=== PATIENT | male | born 1955 | race Caucasian/White ===

== ENCOUNTER → 2018-01-21 14:11 | Outpatient (CLI) | payer OTHER, SELFPAY ==
[2018-01-21 15:44] LABS: Appearance Urine UA CLEAR; Bilirubin Urine UA NEGATIVE (NEGATIVE); Color Urine UA YELLOW; Glucose Urine UA NEGATIVE (Normal); Ketones Urine UA NEGATIVE (NEGATIVE); Leukocyte Esterase Urine UA NEGATIVE (NEGATIVE); Nitrite Urine UA NEGATIVE (NEGATIVE); Occult Blood Urine UA TRACE-INTACT (Negative); Protein Urine UA NEGATIVE (Negative); Urobilinogen Urine UA 0.2 E.U./dL (0.2)
[2018-01-21 15:55] LABS: RBC Urine 0-1/HPF (0-5/HPF); WBC Urine 1-5/HPF (0-5/HPF)
[2018-01-21 15:56] LABS: Bacteria Urine None Seen; Culture Indicated Urine Cult Not Indicated
== END ==
PROVIDERS: PCP Internal Medicine; Visit Provider Student in an Organized Health Care Education/Training Program
DX: C67.9 Malignant neoplasm of bladder, unspecified (principal)
CPT/HCPCS: 81001

== ENCOUNTER → 2018-05-09 17:22 | Outpatient (CLI) | payer OTHER, SELFPAY ==
[2018-05-09 18:09] LABS: Add Manual Diff / Slide Review NO; Eosinophils Percent Auto 4.4 % (2-4); Hematocrit 40.9 % (41-53); Hemoglobin 14.2 g/dL (13.5-17.5); Lymphocytes Percent Auto 22.2 % (25-40); Mean Corpuscular HGB Conc 34.7 % (30-36); Mean Corpuscular Hemoglobin 34.8 PG (26-34); Mean Corpuscular Volume 100.5 fL (80-100); Monocytes Percent Auto 12.4 % (3-14); Neutrophils Absolute Auto 3100 /uL (3000-5900); Platelet Count 217 X10^3/uL (150-400); Red Blood Cell Count 4.07 X10^6/uL (4.5-5.9); Red Cell Distribution Width 13.3 % (11.6-14.8); White Blood Cell Count 5.1 X10^3/uL (4.5-11.0)
[2018-05-09 18:37] LABS: Alanine Aminotransferase 30 IU/L (21-72); Albumin 4.4 g/dL (3.5-5.0); Albumin Globulin Ratio 1.5 (1.0-2.8); Alkaline Phosphatase 76 U/L (38-126); Aspartate Aminotransferase 25 IU/L (17-59); BUN Creatinine Ratio 22.9 (6-22); Bilirubin Total 0.5 mg/dL (0.2-1.3); Blood Urea Nitrogen 16 mg/dL (9-20); Calcium 9.7 mg/dL (8.4-10.2); Carbon Dioxide 28 mmol/L (22-32); Chloride 104 mmol/L (98-107); Estimated Glomerular Filt Rate > 60.0 mL/min (>60); Glucose 99 mg/dL (80-110); HEMOLYSIS 23 (0-50); Potassium 4.1 mmol/L (3.4-5.1); Sodium 142 mmol/L (137-145); Total Protein 7.4 g/dL (6.3-8.2)
[2018-05-09 18:42] LABS: C-Reactive Protein Quant < 0.5 mg/dL (<1.0)
[2018-05-09 19:06] LABS: Erythrocyte Sedimentation Rate 14 MM/HR (0-15)
== END ==
PROVIDERS: Family Provider Internal Medicine; PCP Internal Medicine; Visit Provider Internal Medicine Rheumatology
DX: L40.50 Arthropathic psoriasis, unspecified (principal)
CPT/HCPCS: 36415; 80053; 85025; 85651; 86140

== ENCOUNTER → 2018-06-04 13:03 | Outpatient (CLI) | payer OTHER, SELFPAY ==
[2018-06-04 13:25] LABS: Add Manual Diff / Slide Review NO; Basophils Percent Auto 0.8 % (0-2); Eosinophils Percent Auto 3.8 % (2-4); Hematocrit 40.3 % (41-53); Hemoglobin 13.7 g/dL (13.5-17.5); Mean Corpuscular Hemoglobin 33.9 PG (26-34); Mean Corpuscular Volume 99.9 fL (80-100); Monocytes Percent Auto 10.5 % (3-14); Neutrophils Absolute Auto 3500 /uL (3000-5900); Neutrophils Percent Auto 64.9 % (50-75); Platelet Count 204 X10^3/uL (150-400); Red Blood Cell Count 4.03 X10^6/uL (4.5-5.9); Red Cell Distribution Width 13.6 % (11.6-14.8); White Blood Cell Count 5.4 X10^3/uL (4.5-11.0)
[2018-06-04 14:15] LABS: Alanine Aminotransferase 40 IU/L (21-72); Albumin 4.4 g/dL (3.5-5.0); Albumin Globulin Ratio 1.6 (1.0-2.8); Alkaline Phosphatase 73 U/L (38-126); Aspartate Aminotransferase 27 IU/L (17-59); Bilirubin Total 0.7 mg/dL (0.2-1.3); Blood Urea Nitrogen 16 mg/dL (9-20); Calcium 9.7 mg/dL (8.4-10.2); Carbon Dioxide 26 mmol/L (22-32); Chloride 103 mmol/L (98-107); Estimated Glomerular Filt Rate > 60.0 mL/min (>60); Globulin 2.7 g/dL (1.7-4.1); Glucose 93 mg/dL (80-110); HDL Cholesterol 47 mg/dL (40-60); HEMOLYSIS < 15 (0-50); Potassium 4.3 mmol/L (3.4-5.1); Sodium 142 mmol/L (137-145); Total Protein 7.1 g/dL (6.3-8.2); Triglycerides 127 mg/dL (35-150)
[2018-06-04 14:20] LABS: Thyroid Stimulating Hormone 2.07 uIU/mL (0.47-4.68)
[2018-06-04 14:28] LABS: Cholesterol 140 mg/dL (140-199); LDL Cholesterol Calculated 68 mg/dL (<100)
== END ==
PROVIDERS: PCP Internal Medicine; Visit Provider Internal Medicine
DX: E66.9 Obesity, unspecified (principal); E78.00 Pure hypercholesterolemia, unspecified
CPT/HCPCS: 36415; 80053; 80061; 84443; 85025; G0103

== ENCOUNTER → 2019-02-18 17:20 | Outpatient (CLI) | payer OTHER, SELFPAY ==
--- NOTE | 2019-02-18 | DI.RAD.S_ITS ---
PROCEDURE: XR SHOULDER LT MIN 2V INDICATIONS: LEFT SHOULDER PAIN TECHNIQUE: 3 views of the shoulder were acquired. COMPARISON: None. FINDINGS: Bones: Mild to moderate acromioclavicular joint osteoarthritis is seen. No fractures or dislocations. No suspicious bony lesions. Visualized ribs appear intact. Soft tissues: No suspicious soft tissue calcifications. IMPRESSION: Mild to moderate left acromioclavicular joint osteoarthritis. Dictated by: Vignesh Sharp M.D. on 02/19/2019 at 8:40 Approved by: Vignesh Sharp M.D. on 02/19/2019 at 8:42
== END ==
PROVIDERS: Family Provider Internal Medicine; PCP Internal Medicine; Visit Provider Internal Medicine
DX: M25.512 Pain in left shoulder (principal); M19.012 Primary osteoarthritis, left shoulder
CPT/HCPCS: 73030

== ENCOUNTER → 2019-02-25 06:35 | Outpatient (CLI) | payer OTHER, SELFPAY ==
--- NOTE | 2019-02-25 | DI.MRI.S_ITS ---
PROCEDURE: MR SHOULDER LT WO CON INDICATIONS: CHRONIC LEFT SHOULDER PAIN TECHNIQUE: Noncontrast oblique coronal T2 fast spin echo with fat saturation, oblique sagittal T1 spin echo and T2 fast spin echo with fat saturation, axial T1 spin echo and T2 fast spin echo with fat saturation through the shoulder. COMPARISON: [facility], CR, XR SHOULDER LT MIN 2V, 02/18/2019, 17:25. FINDINGS: Image quality: Excellent. Rotator cuff: There is high-grade partial-thickness tear of the supraspinatus tendon involving both articular and bursal surface. There is superimposed supraspinatus tendinitis with tendon thickening and abnormal signal. The infraspinatus and subscapularis tendons appear intact throughout. Sagittal images demonstrate no supraspinatus muscle atrophy. Bones and bursae: No bone marrow contusions or fractures. Moderate acromioclavicular and glenohumeral joint degeneration. The acromion demonstrates conventional anatomy, without an os acromiale. There is a small glenohumeral joint effusion. No pathologic subacromial-subdeltoid or subcoracoid bursal fluid is present. Capsule and soft tissues: There are degenerative tears of the anterior superior labrum and the inferior labrum. Small paralabral cysts are noted next to the inferior labrum. In the absence of intra-articular contrast, the glenohumeral ligaments appear intact. The long head of the biceps tendon demonstrates normal location and morphology. The rotator interval appears normal, without fibrosis. The coracohumeral ligament is normal in thickness. IMPRESSION: 1. High-grade partial-thickness tear of the supraspinatus tendon and supraspinatus tendinitis. 2. Moderate acromioclavicular and glenohumeral joint degeneration. 3. Degenerative tears of the anterior superior labrum and inferior labrum. 4. Small glenohumeral joint effusion. Dictated by: Manuelito Song M.D. on 02/25/2019 at 14:56 Approved by: Manuelito Song M.D. on 02/25/2019 at 18:06
== END ==
PROVIDERS: Family Provider Internal Medicine; PCP Internal Medicine; Visit Provider Internal Medicine
DX: M25.512 Pain in left shoulder (principal); M19.011 Primary osteoarthritis, right shoulder; M75.111 Incomplete rotator cuff tear or rupture of right shoulder, not specified as traumatic; M25.411 Effusion, right shoulder; S43.491A Other sprain of right shoulder joint, initial encounter; G89.29 Other chronic pain
CPT/HCPCS: 73221

== ENCOUNTER → 2019-04-08 17:15 | Outpatient (CLI) | payer OTHER, SELFPAY ==
[2019-04-10 14:40] LABS: Complement C3 121 mg/dL (82-185)
[2019-04-10 18:49] LABS: ANA Screen, IFA Negative (Negative)
[2019-04-14 07:18] LABS: Complement Total CH50 > 60 U/mL (31-60)
== END ==
PROVIDERS: Family Provider Internal Medicine; PCP Internal Medicine; Visit Provider Dermatology
DX: M32.9 Systemic lupus erythematosus, unspecified (principal)
CPT/HCPCS: 36415; 86038; 86160; 86162

== ENCOUNTER → 2019-04-30 11:29 | Outpatient (CLI) | payer OTHER, SELFPAY | PROVIDERS: PCP Internal Medicine; Visit Provider Student in an Organized Health Care Education/Training Program | DX: C67.9 Malignant neoplasm of bladder, unspecified (principal) | CPT/HCPCS: 88112 ==

== ENCOUNTER → 2019-07-09 13:16 | Outpatient (CLI) | payer OTHER, SELFPAY ==
[2019-07-09 14:05] LABS: Add Manual Diff / Slide Review NO; Basophils Absolute Auto 0 /uL (0-100); Basophils Percent Auto 0.6 % (0-2); Eosinophils Absolute Auto 100 /uL (0-450); Eosinophils Percent Auto 1.8 % (2-4); Hemoglobin 14.7 g/dL (13.5-17.5); Lymphocytes Absolute Auto 1000 /uL (1100-4500); Lymphocytes Percent Auto 16.7 % (25-40); Mean Corpuscular HGB Conc 34.2 % (30-36); Mean Corpuscular Hemoglobin 34.6 PG (26-34); Mean Corpuscular Volume 101.1 fL (80-100); Monocytes Absolute Auto 400 /uL (0-900); Monocytes Percent Auto 7.5 % (3-14); Neutrophils Absolute Auto 4300 /uL (1500-7000); Neutrophils Percent Auto 73.4 % (50-75); Platelet Count 192 X10^3/uL (150-400); Red Blood Cell Count 4.26 X10^6/uL (4.5-5.9); Red Cell Distribution Width 13.6 % (11.6-14.8); White Blood Cell Count 5.8 X10^3/uL (4.5-11.0)
[2019-07-09 14:35] LABS: Alanine Aminotransferase 33 IU/L (<50); Albumin 4.4 g/dL (3.5-5.0); Albumin Globulin Ratio 1.7 (1.0-2.8); Alkaline Phosphatase 74 U/L (38-126); Aspartate Aminotransferase 23 IU/L (17-59); BUN Creatinine Ratio 28.8 (6-22); Bilirubin Total 1.2 mg/dL (0.2-1.3); Blood Urea Nitrogen 23 mg/dL (9-20); Calcium 9.8 mg/dL (8.4-10.2); Carbon Dioxide 25 mmol/L (22-32); Chloride 102 mmol/L (98-107); Cholesterol 150 mg/dL (140-199); Estimated Glomerular Filt Rate > 60.0 mL/min (>60); Globulin 2.6 g/dL (1.7-4.1); Glucose 97 mg/dL (80-110); HDL Cholesterol 52 mg/dL (40-60); HEMOLYSIS < 15 (0-50); LDL Cholesterol Calculated 82 mg/dL (<100); Potassium 4.4 mmol/L (3.4-5.1); Sodium 137 mmol/L (137-145); Triglycerides 79 mg/dL (35-150)
== END ==
PROVIDERS: PCP Internal Medicine; Visit Provider Internal Medicine
DX: L40.52 Psoriatic arthritis mutilans (principal); E78.00 Pure hypercholesterolemia, unspecified
CPT/HCPCS: 36415; 80053; 80061; 85025

== ENCOUNTER → 2019-07-23 13:35 | Outpatient (CLI) | payer OTHER, SELFPAY ==
[2019-07-23 17:06] LABS: Folate 15.7 ng/mL (2.76-20.0); Vitamin B12 348 pg/mL (239-931)
== END ==
PROVIDERS: PCP Internal Medicine; Visit Provider Internal Medicine
DX: D75.89 Other specified diseases of blood and blood-forming organs (principal)
CPT/HCPCS: 36415; 82607; 82746

== ENCOUNTER → 2020-06-04 17:14 | Outpatient (CLI) | payer OTHER, SELFPAY ==
[2020-06-04 17:21] LABS: Bacteria Urine None Seen; RBC Urine None Seen (0-5/HPF); WBC Urine None Seen (0-5/HPF)
[2020-06-04 17:43] LABS: Appearance Urine UA CLEAR; Bilirubin Urine UA 2+ (NEGATIVE); Color Urine UA YELLOW; Glucose Urine UA NEGATIVE (Negative); Ketones Urine UA NEGATIVE (NEGATIVE); Leukocyte Esterase Urine UA NEGATIVE (NEGATIVE); Nitrite Urine UA NEGATIVE (Negative); Occult Blood Urine UA NEGATIVE (Negative); Protein Urine UA NEGATIVE (Negative); Urobilinogen Urine UA 0.2 E.U./dL (0.2)
[2020-06-04 17:56] LABS: Culture Indicated Urine Cult Not Indicated; Ictotest Urine Negative (Negative); Urine Comments Microscopic Normal
== END ==
PROVIDERS: PCP Internal Medicine; Referring Provider Student in an Organized Health Care Education/Training Program; Visit Provider Student in an Organized Health Care Education/Training Program
DX: C67.9 Malignant neoplasm of bladder, unspecified (principal)
CPT/HCPCS: 81001

== ENCOUNTER → 2020-06-14 08:22 | Outpatient (CLI) | payer OTHER, SELFPAY ==
[2020-06-14 09:05] LABS: Add Manual Diff / Slide Review NO; Basophils Absolute Auto 0 /uL (0-100); Basophils Percent Auto 0.6 % (0-2); Eosinophils Absolute Auto 200 /uL (0-450); Eosinophils Percent Auto 3.5 % (2-4); Hematocrit 41.4 % (41-53); Hemoglobin 14.3 g/dL (13.5-17.5); Lymphocytes Absolute Auto 800 /uL (1100-4500); Lymphocytes Percent Auto 14.1 % (25-40); Mean Corpuscular HGB Conc 34.6 % (30-36); Mean Corpuscular Hemoglobin 35.1 PG (26-34); Mean Corpuscular Volume 101.7 fL (80-100); Monocytes Absolute Auto 500 /uL (0-900); Monocytes Percent Auto 8.5 % (3-14); Neutrophils Absolute Auto 4000 /uL (1500-7000); Neutrophils Percent Auto 73.3 % (50-75); Platelet Count 193 X10^3/uL (150-400); Red Blood Cell Count 4.07 X10^6/uL (4.5-5.9); Red Cell Distribution Width 13.6 % (11.6-14.8); White Blood Cell Count 5.5 X10^3/uL (4.5-11.0)
[2020-06-14 09:32] LABS: Erythrocyte Sedimentation Rate 12 MM/HR (0-15)
[2020-06-14 09:37] LABS: Alanine Aminotransferase 26 IU/L (<50); Albumin 4.2 g/dL (3.5-5.0); Albumin Globulin Ratio 1.6 (1.0-2.8); Alkaline Phosphatase 93 U/L (38-126); Aspartate Aminotransferase 22 IU/L (17-59); BUN Creatinine Ratio 27.8 (6-22); Bilirubin Total 0.9 mg/dL (0.2-1.3); Blood Urea Nitrogen 25 mg/dL (9-20); Carbon Dioxide 28 mmol/L (22-32); Chloride 105 mmol/L (98-107); Estimated Glomerular Filt Rate > 60.0 mL/min (>60); Globulin 2.7 g/dL (1.7-4.1); Glucose 108 mg/dL (80-110); HEMOLYSIS < 15 (0-50); Potassium 4.3 mmol/L (3.4-5.1); Sodium 141 mmol/L (137-145); Total Protein 6.9 g/dL (6.3-8.2)
[2020-06-14 09:40] LABS: C-Reactive Protein Quant < 0.5 mg/dL (<1.0)
== END ==
PROVIDERS: PCP Internal Medicine; Referring Provider Physician Assistant Medical; Visit Provider Physician Assistant Medical
DX: L40.50 Arthropathic psoriasis, unspecified (principal)
CPT/HCPCS: 36415; 80053; 85025; 85651; 86140

== ENCOUNTER → 2020-08-17 16:29 | Outpatient (CLI) | payer OTHER, SELFPAY ==
[2020-08-17 17:13] LABS: Add Manual Diff / Slide Review NO; Basophils Absolute Auto 0 /uL (0-100); Basophils Percent Auto 0.4 % (0-2); Eosinophils Absolute Auto 100 /uL (0-450); Eosinophils Percent Auto 1.9 % (2-4); Hematocrit 40.4 % (41-53); Hemoglobin 13.8 g/dL (13.5-17.5); Lymphocytes Absolute Auto 800 /uL (1100-4500); Lymphocytes Percent Auto 11.7 % (25-40); Mean Corpuscular HGB Conc 34.1 % (30-36); Mean Corpuscular Hemoglobin 34.3 PG (26-34); Mean Corpuscular Volume 100.6 fL (80-100); Monocytes Absolute Auto 500 /uL (0-900); Monocytes Percent Auto 6.5 % (3-14); Neutrophils Absolute Auto 5700 /uL (1500-7000); Neutrophils Percent Auto 79.5 % (50-75); Platelet Count 219 X10^3/uL (150-400); Red Blood Cell Count 4.02 X10^6/uL (4.5-5.9); Red Cell Distribution Width 13.8 % (11.6-14.8); White Blood Cell Count 7.1 X10^3/uL (4.5-11.0)
[2020-08-17 17:25] LABS: Alanine Aminotransferase 26 IU/L (<50); Albumin 4.1 g/dL (3.5-5.0); Albumin Globulin Ratio 1.4 (1.0-2.8); Alkaline Phosphatase 86 U/L (38-126); Aspartate Aminotransferase 21 IU/L (17-59); BUN Creatinine Ratio 28.2 (6-22); Bilirubin Total 0.7 mg/dL (0.2-1.3); Blood Urea Nitrogen 20 mg/dL (9-20); Calcium 9.4 mg/dL (8.4-10.2); Carbon Dioxide 28 mmol/L (22-32); Chloride 103 mmol/L (98-107); Cholesterol 126 mg/dL (140-199); Estimated Glomerular Filt Rate > 60.0 mL/min (>60); Globulin 2.9 g/dL (1.7-4.1); Glucose 102 mg/dL (80-110); HDL Cholesterol 44 mg/dL (40-60); HEMOLYSIS < 15 (0-50); LDL Cholesterol Calculated 55 mg/dL (<100); Potassium 3.9 mmol/L (3.4-5.1); Sodium 137 mmol/L (137-145); Triglycerides 133 mg/dL (35-150)
[2020-08-17 17:59] LABS: Testosterone 360 ng/dL (71.8-623)
[2020-08-17 18:05] LABS: TSH w/ Reflex to FT4 1.57 uIU/mL (0.47-4.68)
== END ==
PROVIDERS: PCP Internal Medicine; Referring Provider Internal Medicine; Visit Provider Internal Medicine
DX: E78.00 Pure hypercholesterolemia, unspecified (principal); R53.82 Chronic fatigue, unspecified; N40.1 Benign prostatic hyperplasia with lower urinary tract symptoms
CPT/HCPCS: 36415; 80053; 80061; 84403; 84443; 85025

== ENCOUNTER → 2020-08-18 17:16 | Outpatient (CLI) | payer OTHER, SELFPAY ==
[2020-08-18 17:56] LABS: HEMOLYSIS 28 (0-50); Iron 105 ug/dL (49-181)
[2020-08-18 18:09] LABS: Percent Iron Saturation 35 % (20-50); Total Iron Binding Capacity 298 ug/dL (261-462); Transferrin 220 mg/dL (206-381)
[2020-08-18 18:33] LABS: Ferritin 67 ng/mL (18-464)
[2020-08-18 18:47] LABS: Vitamin B12 265 pg/mL (239-931)
== END ==
PROVIDERS: PCP Internal Medicine; Referring Provider Internal Medicine; Visit Provider Internal Medicine
DX: D64.9 Anemia, unspecified (principal)
CPT/HCPCS: 36415; 82607; 82728; 83540; 83550

== ENCOUNTER → 2020-09-20 13:06 | Outpatient (CLI) | payer OTHER, SELFPAY ==
[2020-09-20 14:56] LABS: Prostate Specific Antigen 1.21 ng/mL (0.10-4.00)
== END ==
PROVIDERS: PCP Internal Medicine; Referring Provider Student in an Organized Health Care Education/Training Program; Visit Provider Student in an Organized Health Care Education/Training Program
DX: N40.1 Benign prostatic hyperplasia with lower urinary tract symptoms (principal)
CPT/HCPCS: 36415; 84153

== ENCOUNTER → 2020-10-07 10:53 | Outpatient (CLI) | payer OTHER, SELFPAY ==
--- NOTE | 2020-10-07 | DI.CT.S_ITS ---
PROCEDURE: CT HEAD/BRAIN WO CON INDICATIONS: Dizziness and giddiness TECHNIQUE: Noncontrast 4.5 mm thick angled axial sections acquired from the foramen magnum to the vertex, with coronal and sagittal reformats. For radiation dose reduction, the following was used: automated exposure control, adjustment of mA and/or kV according to patient size. COMPARISON: None. FINDINGS: Image quality: Excellent. CSF spaces: Basal cisterns are patent. No extra-axial fluid collections. The ventricles are symmetric in size and shape. Brain: No intracranial bleeds or masses. There is mild cerebral volume loss for age, with resultant ventricular and sulcal prominence. There are mild periventricular and deep white matter chronic small vessel ischemic changes. There is intracranial internal carotid artery atherosclerosis. Skull and face: Calvarium and visualized facial bones appear intact, without suspicious lesions. Sinuses: Visualized sinuses and mastoids are clear. IMPRESSION: 1. No acute intracranial disease process. 2. No areas of infarction. 3. No abnormal intracranial mass or mass effect. Dictated by: Richa Lemus MD, PhD on 10/07/2020 at 11:14 Approved by: Richa Lemus MD, PhD on 10/07/2020 at 11:17
== END ==
PROVIDERS: PCP Internal Medicine; Referring Provider Internal Medicine; Visit Provider Physician Assistant
DX: R42 Dizziness and giddiness (principal); R41.3 Other amnesia; R41.0 Disorientation, unspecified
CPT/HCPCS: 70450

== ENCOUNTER → 2021-07-08 17:17 | Outpatient (CLI) | payer OTHER, SELFPAY ==
[2021-07-08 18:18] LABS: Add Manual Diff / Slide Review NO; Basophils Absolute Auto 0 /uL (0-100); Basophils Percent Auto 0.8 % (0-2); Eosinophils Absolute Auto 100 /uL (0-450); Eosinophils Percent Auto 2.8 % (2-4); Hematocrit 29.4 % (41-53); Lymphocytes Absolute Auto 900 /uL (1100-4500); Lymphocytes Percent Auto 17.5 % (25-40); Mean Corpuscular HGB Conc 34.1 % (30-36); Mean Corpuscular Hemoglobin 34.7 PG (26-34); Mean Corpuscular Volume 101.8 fL (80-100); Monocytes Absolute Auto 500 /uL (0-900); Monocytes Percent Auto 10.3 % (3-14); Neutrophils Absolute Auto 3600 /uL (1500-7000); Neutrophils Percent Auto 68.6 % (50-75); Platelet Count 239 X10^3/uL (150-400); Red Blood Cell Count 2.89 X10^6/uL (4.5-5.9); White Blood Cell Count 5.2 X10^3/uL (4.5-11.0)
[2021-07-08 18:20] LABS: HEMOLYSIS < 15 (0-50); Iron 50 ug/dL (49-181)
[2021-07-08 18:31] LABS: Percent Iron Saturation 17 % (20-50); Total Iron Binding Capacity 292 ug/dL (261-462); Transferrin 207 mg/dL (206-381)
[2021-07-08 18:57] LABS: Ferritin 20 ng/mL (18-464)
[2021-07-08 19:28] LABS: Folate 18.2 ng/mL (2.76-20.0); Vitamin B12 298 pg/mL (239-931)
== END ==
PROVIDERS: PCP Family Medicine; Referring Provider Internal Medicine Gastroenterology; Visit Provider Internal Medicine Gastroenterology
DX: D64.9 Anemia, unspecified (principal); R10.84 Generalized abdominal pain; K92.1 Melena; R63.4 Abnormal weight loss; Z12.11 Encounter for screening for malignant neoplasm of colon
CPT/HCPCS: 36415; 82607; 82728; 82746; 83540; 83550; 85025

== ENCOUNTER → 2021-07-11 14:00 | Outpatient (CLI) | payer OTHER, SELFPAY ==
[2021-07-11 16:48] LABS: COVID19 - ADMIT (NP swab/PCR) Negative (Negative)
== END ==
PROVIDERS: PCP Family Medicine; Visit Provider Physician Assistant
DX: Z20.822 Contact with and (suspected) exposure to COVID-19 (principal)
CPT/HCPCS: U0003

== ENCOUNTER → 2021-08-09 17:11 | Outpatient (CLI) | payer OTHER, SELFPAY ==
[2021-08-09 17:58] LABS: Appearance Urine UA CLEAR; Bilirubin Urine UA NEGATIVE (NEGATIVE); Color Urine UA YELLOW; Glucose Urine UA NEGATIVE (Negative); Ketones Urine UA TRACE (NEGATIVE); Leukocyte Esterase Urine UA NEGATIVE (NEGATIVE); Nitrite Urine UA NEGATIVE (Negative); Occult Blood Urine UA TRACE-LYSED (Negative); Protein Urine UA TRACE (Negative); Specific Gravity Urine UA >=1.030 (1.000-1.035); Urobilinogen Urine UA 0.2 E.U./dL (0.2)
[2021-08-09 18:26] LABS: RBC Urine None Seen (0-5/HPF); Squamous Epithelial Cell Urine 5-10 /HPF (0-5/HPF); WBC Urine None Seen (0-5/HPF)
[2021-08-09 18:27] LABS: Amorphous Sediment Urine 1+; Bacteria Urine None Seen; Culture Indicated Urine Cult Not Indicated
== END ==
PROVIDERS: PCP Family Medicine; Referring Provider Urology; Visit Provider Urology
DX: R31.0 Gross hematuria (principal); N40.1 Benign prostatic hyperplasia with lower urinary tract symptoms
CPT/HCPCS: 36415; 81001

== ENCOUNTER → 2021-10-17 16:00 | Outpatient (CLI) | payer MEDICARE, BC, SELFPAY ==
[2021-10-17 16:49] LABS: COVID19 -Nasal RAPID Negative (Negative)
== END ==
PROVIDERS: PCP Family Medicine; Visit Provider Surgery
DX: Z01.812 Encounter for preprocedural laboratory examination (principal); Z20.822 Contact with and (suspected) exposure to COVID-19; K62.89 Other specified diseases of anus and rectum
CPT/HCPCS: 87635; 99214

== ENCOUNTER 2021-10-18 08:32 | Day surgery (SDC) | payer MEDICARE, OTHER, SELFPAY ==
[2021-10-18] VITALS (7 sets, daily range): BP systolic 121–154; BP diastolic 67–88; PULSE 58–75; RESP 13–20; TEMP 36.7–36.8; O2SAT 93–99; BMI 25.4
[2021-10-18] MEDS: LACTATED RINGERS 1,000 ML 125 ML IV (09:20)
--- NOTE | 2021-10-18 09:35 | PM.PREOP ---
Pre-operative Note COVID-19 Criteria for continued procedure: Expected advancement of disease process Interval Note History & Physical reviewed/Exam performed by Physician: Yes Changes to H&P: No
[2021-10-18] MEDS: fentaNYL 250 MCG/5 ML INJ IV (09:37)
[2021-10-18] MEDS: MIDAZOLAM 5 MG/5 ML VIAL IV (09:39)
--- NOTE | 2021-10-18 10:07 | P.OP.COLON_ITS ---
Operative Date/Time/Diagnoses Date of procedure: 10/18/21 Time of procedure: 10:07 Pre-op diagnosis: Rectal mass Post-op diagnosis: other (Internal hemorrhoids) Procedure & Clinicians Study performed: Flexible sigmoidoscopy Same procedure as scheduled: Yes Indications: 66-year-old male with a rectal mass GI bleed and weight loss here for sig moidoscopy Surgeon: Nate Sparks Procedure Notes Procedure in detail: Patient was brought to the procedure room placed in left lateral decubitus position. Procedural sedation was administered with Versed and fentanyl. The pediatric scope was inserted into anus and advanced forward. There was a 2 cm friable structure within the anal canal which was consistent in appearance with a large ulcerated internal hemorrhoid. The scope was advanced forward and ultimately we were able to reach the ascending colon the cecum could not intubated secondary to the degree of stool burden he had not had a bowel prep prior to the procedure as he was unable to tolerated. Scope was carefully withdrawn the quality of the prep was quite limiting however there were no large masses and there was diverticular disease noted. Sedation minutes: 25 Specimen(s): none sent Complications: none Impression: Internal hemorrhoid Post-procedure Plan for aftercare: Will plan for excisional hemorrhoidectomy later today Disposition: same day surgery
--- NOTE | 2021-10-18 14:00 | SUR.PHASEII ---
Late entry: Pt kept in Phase 2 awaiting hemorrhoidectomy. updated multiple times. Dr. Sparks to pt's bedside multiple times as well. Pt up to [facility] having loose stools, states pain in rectum tolerable.
== END 2021-10-18 13:59 | disposition home or self-care (01) ==
LOC: OR 08:34
PROVIDERS: PCP Family Medicine; Referring Provider Surgery; Visit Provider Surgery
PROC: 0DJD8ZZ Inspection of Lower Intestinal Tract, Via Natural or Artificial Opening Endoscopic (ICD-10-PCS; CPT 45378; principal; 2021-10-18 10:00)
DX: K64.8 Other hemorrhoids (principal); R63.4 Abnormal weight loss
CPT/HCPCS: 45330; 99152; 99153; J1100; J2250; J2405; J2704; J3010

== ENCOUNTER 2021-10-18 14:06 | Day surgery (SDC) | payer MEDICARE, OTHER, SELFPAY ==
[2021-10-18] VITALS (8 sets, daily range): BP systolic 118–146; BP diastolic 65–95; PULSE 54–557; RESP 16–18; TEMP 36.6–37.3; O2SAT 95–97; BMI 25.4
--- NOTE | 2021-10-18 | PATH_ITS ---
[facility] Accession Number: [id number] . 01 Material submitted: . rectum - RECTAL MASS . 02 Diagnosis: A. Rectal Mass, Excision: Consistent with hemorrhoidal tissue with erosion and extensive reactive changes. No evidence of dysplasia or malignancy. [facility] 10/24/2021 1642 Local . 02 Electronically signed: . Michelle Newton MD, Pathologist NPI- [id number] . 01 Gross description: . RECTAL MASS: Received in formalin is 1 fragment of brooks soft tissue measuring 1.1 x 0.9 x 0.9 cm. Specimen is sectioned and submitted in its entirety in 1 cassette. /YOVANY 10/19/20212010 Local . 02 Microscopic: . P16 immunostain is performed on block A1 in order to assess an area of cauterized tissue for moderate dysplasia with appropriately staining external controls. The area of interest demonstrates no overexpression of p16, in support of the diagnosis. . * This test was developed and its performance characteristics determined by [facility]. It has not been cleared or approved by the U.S. Food and Drug Administration. The FDA has determined that such clearance or approval is not necessary. This test is used for clinical purposes. It should not be regarded as investigational or for research. . 02 Pathologist provided ICD-10: K64.9 . 02 CPT . 853055, F28804 Specimen Comment: A courtesy copy of this report has been sent to [phone] Performed at: 01 [facility] [address] [facility], [place], [place] [id number] MD Lv Boggs MD Phone: [phone] Performed at: [address] [facility] [address] [place], [place] [id number] MD Aleisha Santos MD Phone: [phone]
[2021-10-18] MEDS: LACTATED RINGERS 1,000 ML 42 ML IV (13:34)
--- NOTE | 2021-10-18 14:10 | SUR.OPER ---
Lithotomy on padded OR bed, head on pillow, arms secured on padded arm boards at <90 degrees abduction. Legs secured in padded yellow fins stirrups.
--- NOTE | 2021-10-18 14:18 | PM.HP.1 ---
History of Present Illness History of Present Illness Date Patient Seen: 10/18/21 Time Patient Seen: 14:18 Chief complaint: HEMORRHOIDECTOMY Narrative: 66-year-old man had a flexible sigmoidoscopy today for a rectal mass and associated bleeding. Sigmoidoscopy demonstrated very friable large hemorrhoid and not a arjun mass. He is here for excisional hemorrhoidectomy. Patient History Medical History (Updated 10/18/21 @ 14:20 by Nate Sparks MD) Bladder cancer Excessive daytime sleepiness (~2013) Obstructive sleep apnea syndrome (~2013) Primary insomnia (~2013) Psoriatic arthritis Snoring (~2013) Family & Social History Social History: household members spouse lives independently Yes caregiver/support person No Tobacco & Substance use: Smoking Status Never smoker alcohol intake frequency a few times a month Substance Use Type does not use Meds Home Medications and Allergies Home Medications Medication Instructions Recorded Confirmed Type Resmed Airsense 10 CPAP #1 ea 01/16/19 10/17/21 History atorvastatin 10 mg tablet 10 mg PO BEDTIME 10/18/21 10/18/21 History docusate sodium 100 mg capsule 100 mg PO BID 10/18/21 10/18/21 History (Stool Softener) oxybutynin chloride 5 mg tablet 5 mg PO BID 10/18/21 10/18/21 History tamsulosin 0.4 mg capsule (Flomax) 0.4 mg PO BID 10/18/21 History Allergies Allergy/AdvReac Type Severity Reaction Status Date / Time No Known Allergies Allergy Uncoded 10/17/21 15:32 Exam Vital Signs (past 8 hours): - 10/18/21 14:09 Temperature 99.2 F Pulse Rate 63 Respiratory Rate 16 Blood Pressure 146/82 H Pulse Oximetry 97 Oxygen Delivery Method Room Air Narrative Exam Narrative: GENERAL: Obese male in no apparent distress HEENT: No scleral icterus CV: Regular rate, no peripheral edema LUNGS: No increased work of breathing. Patient speaks in full sentences without oxygen support. ABDOMEN: Soft, non-tender, non-distended NEURO: Nonfocal, normal strength throughout, SKIN: Warm and dry Assessment & Plan Assessment and plan (1) Hemorrhoid: Status: Acute Assessment & Plan narrative: 66 old man ulcerated large internal hemorrhoid here for excisional hemorrhoidectomy. Technical details of the procedure were discussed with the patient. Operative risks including bleeding, infection, incontinence and anal stenosis were discussed. His questions have been answered and he is in agreement with this plan. Time Spent With Patient Critical Care time: I spent a total of [] minutes of critical care time on this patient's care today; this time is exclusive of procedural time.
[2021-10-18] MEDS: BUPIVACAINE 0.25% (PF) VIAL 30 ML INJ (14:43)
[2021-10-18] MEDS: BUPIVACAINE LIPOSOME 266 MG/20 ML VIAL INJ (14:43)
[2021-10-18] MEDS: METHYLENE BLUE 50 MG/10 ML VIAL INJ (14:44)
[2021-10-18] MEDS: DIBUCAINE 1% OINT 28 GM 1 APPLIC TOP (14:46)
--- NOTE | 2021-10-18 15:10 | PM.OP.1 ---
Operative Date/Time/Diagnoses Date of procedure: 10/18/21 Time of procedure: 15:10 Pre-op diagnosis: rectal mass Post-op diagnosis: same Procedure & Clinicians Procedure: excisional biopsy of rectal mass Same procedure as scheduled: Yes Indications: 66 y.o man with weight loss, rectal pain and a low lying rectal mass observed on sigmoidoscopy today. Surgeon: Nate Sparks Click Yes if Unassisted: Yes Anesthesia Type: General Operative Notes Findings: 1.5 cm friable mass in the anal canal. Posterior midline. 2 cm from the anal verge. Specimen(s): other (rectal mass) Estimated Blood Loss (mL): 10 Procedure in detail: Patient was brought to the operating room placed supine. General anesthesia was induced he was intubated with LMA. Placed in lithotomy. Prepped draped sterile fashion. Time-out performed. Inspection of the rectum demonstrated a 1.5 cm friable mass within the anal canal in the posterior midline. On close inspection it does not appear to be a hemorrhoid. It was excised using electrocautery of the mucosa. 3 ml of methylene blue was injected into the mucosa just proximal to the mass. Hemostasis was achieved. Complications: none Post-operative Condition: stable Disposition: same day surgery
[2021-10-18] MEDS: OXYCODONE IR 5 MG TABLET PO (15:28)
== END 2021-10-18 16:07 | disposition home or self-care (01) ==
PROVIDERS: PCP Family Medicine; Referring Provider Surgery; Visit Provider Surgery
PROC: (CPT 45384; principal; 2021-10-18 14:45)
DX: K64.8 Other hemorrhoids (principal); R63.4 Abnormal weight loss; G47.33 Obstructive sleep apnea (adult) (pediatric)
CPT/HCPCS: 45384; 45381; C9290; J1100; J2250; J2405; J2704; J3010; Q9968

== ENCOUNTER 2022-01-31 06:42 | Day surgery (SDC) | payer MEDICARE, OTHER, SELFPAY ==
[2022-01-31 07:10] VITALS: BP 119/74; PULSE 64; RESP 16; TEMP 37; O2SAT 97
[2022-01-31 07:31] LABS: COVID19 -Nasal RAPID POSITIVE (Negative)
--- NOTE | 2022-01-31 07:45 | SUR.PREOP ---
Patient tested positive for COVID, case canceled. Endoscopy notified. Advised patient to take precautions and to follow-up with provider.
== END 2022-01-31 06:45 | disposition home or self-care (01) ==
PROVIDERS: PCP Family Medicine; Referring Provider Surgery; Visit Provider Surgery
DX: K62.89 Other specified diseases of anus and rectum (principal); K92.2 Gastrointestinal hemorrhage, unspecified; Z53.09 Procedure and treatment not carried out because of other contraindication; U07.1 COVID-19
CPT/HCPCS: 45378; 87635; C9803

== ENCOUNTER → 2022-02-06 09:39 | Outpatient (ROUT) | payer MEDICARE, OTHER, SELFPAY ==
[2022-02-06 18:07] LABS: COVID-19 CEPHEID PCR (VTM/NP) Negative (Negative)
== END ==
PROVIDERS: PCP Family Medicine; Visit Provider Family Medicine
DX: Z20.822 Contact with and (suspected) exposure to COVID-19 (principal)
CPT/HCPCS: U0003; U0005

== ENCOUNTER → 2022-02-21 13:18 | Outpatient (CLI) | payer MEDICARE, OTHER, SELFPAY ==
[2022-02-21 15:07] LABS: Appearance Urine UA CLEAR; Bilirubin Urine UA NEGATIVE (NEGATIVE); Color Urine UA YELLOW; Glucose Urine UA NEGATIVE (Negative); Ketones Urine UA NEGATIVE (NEGATIVE); Leukocyte Esterase Urine UA 1+ (NEGATIVE); Nitrite Urine UA NEGATIVE (Negative); Occult Blood Urine UA 3+ (Negative); Protein Urine UA NEGATIVE (Negative); Specific Gravity Urine UA 1.015 (1.000-1.035); Urobilinogen Urine UA 0.2 E.U./dL (0.2); pH Urine UA 5.5 (4.5-8.0)
[2022-02-21 15:13] LABS: Bacteria Urine None Seen; Culture Indicated Urine Specimen Cultured; RBC Urine 1-5/HPF (0-5/HPF); WBC Urine 1-5/HPF (0-5/HPF)
== END ==
PROVIDERS: PCP Family Medicine; Referring Provider Urology; Visit Provider Urology
DX: R30.0 Dysuria (principal)
CPT/HCPCS: 81001; 87086

== ENCOUNTER → 2022-05-15 17:13 | Outpatient (CLI) | payer MEDICARE, OTHER, SELFPAY ==
[2022-05-15 18:10] LABS: Appearance Urine UA CLOUDY; Bilirubin Urine UA NEGATIVE (NEGATIVE); Color Urine UA YELLOW; Glucose Urine UA TRACE g/dL (Negative); Ketones Urine UA TRACE (NEGATIVE); Leukocyte Esterase Urine UA 2+ (NEGATIVE); Nitrite Urine UA NEGATIVE (Negative); Occult Blood Urine UA 3+ (Negative); Protein Urine UA 3+ (Negative); Specific Gravity Urine UA 1.025 (1.000-1.035); Urobilinogen Urine UA 0.2 E.U./dL (0.2)
[2022-05-15 18:16] LABS: Bacteria Urine Moderate (10-30); Culture Indicated Urine Specimen Cultured; Mucus Urine 1+ (Negative); RBC Urine 10-30/HPF (0-5/HPF); Squamous Epithelial Cell Urine 0-1 /HPF (0-5/HPF); WBC Urine >100/HPF (0-5/HPF)
== END ==
PROVIDERS: PCP Family Medicine; Referring Provider Urology; Visit Provider Urology
DX: R30.0 Dysuria (principal)
CPT/HCPCS: 81001; 87086

== ENCOUNTER 2022-11-07 09:52 | Day surgery (SDC) | payer MEDICARE, OTHER, SELFPAY ==
[2022-11-07 10:28] VITALS: BMI 26.0
[2022-11-07 10:39] VITALS: BP 151/86; PULSE 77; RESP 16; TEMP 36.6; O2SAT 97
[2022-11-07] MEDS: LACTATED RINGERS 1,000 ML 200 ML IV (10:41)
--- NOTE | 2022-11-07 11:18 | PM.PREOP ---
Pre-operative Note Interval Note History & Physical reviewed/Exam performed by Physician: Yes Changes to H&P: No
[2022-11-07 11:42] VITALS: BP 110/66; PULSE 59; RESP 12; TEMP 36.6; O2SAT 96
--- NOTE | 2022-11-07 11:44 | PM.OP.COLON ---
Operative Date/Time/Diagnoses Date of procedure: 11/07/22 Time of procedure: 11:44 Pre-op diagnosis: Abdominal pain Post-op diagnosis: same Procedure & Clinicians Study performed: Colonoscopy Same procedure as scheduled: Yes Indications: 67-year-old man with right-sided abdominal pain here for colonoscopy Surgeon: Nate Sparks Procedure Notes Procedure in detail: The history and physical was performed/updated and the patient is ASA class is 2. The procedure was discussed in detail with the patient. Potential risks complications including infection, bleeding, missed diagnosis, perforation, need for surgery, and were explained. Their questions were answered and informed consent was obtained. Patient was brought to the procedure room and placed standard monitoring equipment. The patient's vital signs were monitored continuously throughout the entire procedure. Prior to starting time-out was performed. The patient was placed in the left lateral recumbent position. Procedural sedation was administered by anesthesia. Examination began with a thorough inspection of the perianal area there was no evidence of fissures, fistulae, external hemorrhoids or cutaneous malignancy. The colonoscopy scope was then placed into the anal canal and was advanced to the cecum, which was identified by the ileocecal valve, the appendiceal orifice and the confluence of the taenia. The scope was then slowly withdrawn examining colon thoroughly in all directions, irrigating it of any residual stool. There were no masses polyps or inflammation within the colon. Colon was notable for diverticulosis throughout the entirety of the colon The patient tolerated the procedure well. They will be discharged once criteria are met. The prep was of good/excellent quality. The withdrawl time was 7 minutes. Specimen(s): none sent Impression: Diverticulosis Post-procedure Recommendations: Colonoscopy in 10 years and High fiber diet Disposition: same day surgery
[2022-11-07 11:47] VITALS: BP 113/70; PULSE 59; RESP 13; O2SAT 94
[2022-11-07 11:52] VITALS: BP 112/72; PULSE 66; RESP 14; O2SAT 97
[2022-11-07 11:56] VITALS: BP 122/79; PULSE 65; RESP 14; O2SAT 98
== END 2022-11-07 12:18 | disposition home or self-care (01) ==
PROVIDERS: PCP Family Medicine; Referring Provider Surgery; Visit Provider Surgery
PROC: 0DJD8ZZ Inspection of Lower Intestinal Tract, Via Natural or Artificial Opening Endoscopic (ICD-10-PCS; CPT 45378; principal; 2022-11-07 11:00)
DX: R10.9 Unspecified abdominal pain (principal); K57.30 Diverticulosis of large intestine without perforation or abscess without bleeding
CPT/HCPCS: 45378; J2704; J3010

== ENCOUNTER → 2023-01-03 15:20 | Outpatient (CLI) | payer MEDICARE, OTHER, SELFPAY ==
[2023-01-03 18:02] LABS: Appearance Urine UA CLOUDY; Bilirubin Urine UA NEGATIVE (NEGATIVE); Color Urine UA YELLOW; Glucose Urine UA NEGATIVE (Negative); Ketones Urine UA NEGATIVE (NEGATIVE); Leukocyte Esterase Urine UA 3+ (NEGATIVE); Nitrite Urine UA NEGATIVE (Negative); Occult Blood Urine UA 1+ (Negative); Protein Urine UA TRACE (Negative); Urobilinogen Urine UA 0.2 E.U./dL (0.2)
[2023-01-03 18:19] LABS: Bacteria Urine Many (>30); Culture Indicated Urine Specimen Cultured; RBC Urine 5-10/HPF (0-5/HPF); Squamous Epithelial Cell Urine 1-5 /HPF (0-5/HPF); WBC Urine >100/HPF (0-5/HPF)
== END ==
PROVIDERS: PCP Family Medicine; Referring Provider Urology; Visit Provider Urology
DX: R30.0 Dysuria (principal)
CPT/HCPCS: 81001; 87077; 87086; 87147; 87186

== ENCOUNTER → 2023-01-08 09:56 | Outpatient (CLI) | payer MEDICARE, OTHER, SELFPAY ==
--- NOTE | 2023-01-08 | DI.CT.S_ITS ---
PROCEDURE: CT CHEST WO CON INDICATIONS: PULMONARY NODULES TECHNIQUE: Noncontrast 2.0-2.5 mm thick sections acquired from the pulmonary apices to the posterior costophrenic angles. 7 mm thick axial MIP and 5 mm coronal and sagittal reformats were then acquired. A low radiation dose technique was utilized. COMPARISON: None. FINDINGS: Image quality: Diagnostic, given the low radiation dose technique. Lungs and pleura: Stable small pulmonary nodules in the periphery of the right upper lobe, largest measuring 4 mm (series 3, image 134). Stable 6 mm solid nodule in the right lung base (series 3, image 271). Mediastinum: Heart size is normal. No pericardial effusion. No mediastinal adenopathy by size criteria. Thoracic aorta and central pulmonary arteries are normal in size. Esophagus is normal in caliber. No hiatal hernia. Marked coronary artery calcifications for age. Bones and chest wall: No suspicious bony lesions. No vertebral body compression fractures. No axillary or supraclavicular adenopathy by size criteria. Thyroid gland is unremarkable . Abdomen: Visualized upper abdomen solid organs and bowel loops appear normal in the absence of contrast. IMPRESSION: Stable pulmonary nodules compared with 07/20/2022. Largest measures 6 mm in the left lower lobe. If at high risk for developing lung cancer, recommend follow-up in 18-24 months as of 07/20/2022. This is optional if the patient is at low risk for developing lung cancer. Marked coronary artery calcifications for age. Consider cardiology referral. Fleischner Society criteria for SOLID lung nodule followup. Nodule size (mm)Low-risk patientHigh-risk patient<6 (single or multiple)No routine followup.Optional CT at 12 months. 6-8 (single or multiple)CT at 6-12 months, then optional CT at 18-24 mo.CT at 6-12 months, then CT at 18-24 months. >8 (single)CT at 3 months, PET-CT, or biopsy. Same as for low-risk pts. >8 (multiple)CT at 3-6 months, then optional CT at 18-24 mo.CT at 3-6 months, then CT at 18-24 months. Fleischner Society criteria for SUB-SOLID lung nodule followup. Solitary pure ground-glass nodules<6 mm (ground glass or part solid)No followup needed. 6 mm or larger (ground glass)CT at 6-12 months to confirm persistence, then CT every 2 years until 5 years.6 mm or larger (part solid)CT at 3-6 months to confirm persistence, then annual CT until 5 years if unchanged and solid component remains <6 mm. Multiple sub-solid nodules<6 mmCT at 3-6 months, then CT consider at 2 & 4 years for high risk patients. [address] at 3-6 months. Subsequent management based on most suspicious lesions. Recommendations do not apply to lung cancer screening, patients with immunosuppression, or patients with known primary cancer. Dictated by: Froilan Carpio M.D. on 01/08/2023 at 16:01 Approved by: Froilan Carpio M.D. on 01/08/2023 at 16:09
== END ==
PROVIDERS: PCP Family Medicine; Referring Provider Urology; Visit Provider Urology
DX: C67.9 Malignant neoplasm of bladder, unspecified (principal); R91.8 Other nonspecific abnormal finding of lung field; I25.10 Atherosclerotic heart disease of native coronary artery without angina pectoris
CPT/HCPCS: 71250

== ENCOUNTER → 2023-03-22 07:51 | Outpatient (CLI) | payer MEDICARE, OTHER, SELFPAY ==
--- NOTE | 2023-03-22 07:52 | DI.ECHO.S_ITS ---
[facility] +---------+ : : [address] : [place] : : : : [id number] : : : : Phone: [phone]+ Echocardiogram Report + + :Name: DEBORAH SINGH JR Study Date: 03/22/2023 Height: 71 in : :[facility] ReadingLocation: Weight: 205 lb : : Gender: Male BSA: 2.1 m2 : :: 1955 Age: 67 yrs BP: 148/89 mmHg: :Reason For Study: Atherosclerotic Heart Disease : :Ordering Physician: LEXY, : :FRANCISCO Performed By: Sravani Velez : :Referring: FRANCISCO PUGH : + + Interpretation Summary The ejection fraction is estimated to be 60-65%. Diastolic parameters suggest probable normal left ventricular diastolic function and normal filling pressures. The right ventricular systolic function is normal. Pulmonary artery pressures cannot be estimated because of the lack of a measurable TR jet velocity. No significant valvular abnormality. There is a trivial pericardial effusion noted. Procedure: A two-dimensional transthoracic echocardiogram with color flow and Doppler was performed. The study quality was technically adequate. There is no prior echocardiogram noted for this patient. The patient was in normal sinus rhythm during the exam. Left Ventricle: The left ventricle is normal in size. The ejection fraction is estimated to be 60-65%. There are no obvious focal wall motion abnormalities noted but poor endocardial definition reduces the sensitivity for the detection of such. Diastolic parameters suggest probable normal left ventricular diastolic function and normal filling pressures. Right Ventricle: The right ventricular cavity is small. The right ventricular systolic function is normal. Atria: The left atrium is borderline dilated. Right atrial size is normal. There is no Doppler evidence for an interatrial shunt. Mitral Valve: The mitral valve leaflets appear mildly thickened, but open well. There is no mitral valve stenosis. There is trace mitral regurgitation. Aortic Valve: The aortic valve is trileaflet. The aortic valve opens well. There is no aortic valve stenosis. No aortic regurgitation is present. Tricuspid Valve: The tricuspid valve is normal. There is no tricuspid stenosis. There is trace tricuspid regurgitation. Pulmonary artery pressures cannot be estimated because of the lack of a measurable TR jet velocity. Pulmonic Valve: The pulmonic valve leaflets are thin and pliable; valve motion is normal. There is no pulmonic valvular stenosis. There is trace pulmonic regurgitation. Great Vessels: The aortic root is normal size. The ascending aorta is normal in size. The pulmonary artery is normal size. The IVC is of normal diameter and collapses greater than 50% with a sniff. This suggests a low right atrial pressure of 3 mm Hg. Pericardium/ Pleura There is a trivial pericardial effusion noted. There are small-sized bilateral pleural effusions noted. MMode/2D Measurements & Calculations LVIDd: 5.0 cm LVOT diam: 2.2 cm LVIDs: 4.2 cm Ao root diam: 3.5 cm FS: 16.0 % asc Aorta Diam: 3.4 cm EPSS: 1.4 cm IVSd: 1.4 cm LVPWd: 1.5 cm LV balbuena. diameter/BSA (cm/m^2): 2.3 LV sys. diameter/BSA (cm/m^2): 2.0 LA A2 area: 20.9 cm2 RA long axis: 5.3 cm LA A4 area: 18.4 cm2 RA area: 12.4 cm2 LA length (vol): 5.3 cm RA vol: 24.5 ml LA vol: 62.1 ml RA : 11.5 ml/m2 LA vol index: 29.1 ml/m2 RVD1 (basal): 3.0 cm LVLs ap4: 6.4 cm LVLd ap2: 7.0 cm TAPSE_phl: 2.1 cm LVLs ap2: 6.2 cm Doppler Measurements & Calculations Ao V2 max: 115.0 cm/sec LVOT Max Mayito: 86.7 cm/sec Ao V2 mean: 80.1 cm/sec LV V1 max P.0 mmHg Ao max P.0 mmHg LV V1 VTI: 20.9 cm Ao mean P.0 mmHg ONI(I,D): 2.9 cm2 Ao V2 VTI: 27.7 cm ONI(V,D): 2.9 cm2 sev ratio: 0.75 ONI indexed to BSA (cm^2/m^2): 1.3 MV E max mayito: 78.8 cm/sec PA V2 max: 108.0 cm/sec MV A max mayito: 83.3 cm/sec PA V2 mean: 73.1 cm/sec MV E/A: 0.95 PA mean P.0 mmHg Med Peak E' Mayito: 7.7 cm/sec PA pr(Accel): 11.0 mmHg E/E' med: 10.2 Lat Peak E' Mayito: 11.6 cm/sec E/E' lat: 6.8 E/e' average: 8.5 MV dec time: 0.19 sec SV(LVOT): 79.4 ml AV VR_phl: 0.75 ONI(VTI)/BSA_phl: 1.4 MV P1/2t-pr_phl: 56.0 msec Reading Physician:PM
== END ==
PROVIDERS: PCP Family Medicine; Referring Provider Internal Medicine; Visit Provider Internal Medicine
DX: J90 Pleural effusion, not elsewhere classified (principal); I25.10 Atherosclerotic heart disease of native coronary artery without angina pectoris; I25.84 Coronary atherosclerosis due to calcified coronary lesion
CPT/HCPCS: 93306

== ENCOUNTER 2023-10-03 09:52 | Emergency (ER) | payer MEDICARE, OTHER, SELFPAY ==
[2023-10-03] VITALS (10 sets, daily range): BP systolic 129–190; BP diastolic 75–87; PULSE 55–69; RESP 20; TEMP 36.6; O2SAT 94–98; BMI 28.4
--- NOTE | 2023-10-03 10:09 | PC.NURSE ---
Pt had recent TURBT surgery x1 week ago. Catheter d\c'd on sunday and pt reports he is having thick dark reddish-black urine. Pt denies any pain. Pt was advised by pcp to come to ED for further workup and evaluation. Pt a&ox4.
--- NOTE | 2023-10-03 10:16 | ED.MALEGU ---
HPI - Male Genitourinary General Chief complaint: Urogenital-Male Stated complaint: sent by pcp surgery t-7 urinary bledding not stop Time Seen by Provider: 10/03/23 10:15 Source: patient Mode of arrival: Ambulatory Limitations: no limitations History of Present Illness HPI Narrative: 68-year-old male with history of prostate cancer he had his 5th prostate surgery last week states he had his catheter out on Sunday had a little bit of blood but states it has been increasing over time and becoming more thick, sludge and dark. States he is having some dysuria and frequency requires a little bit more Valsalva to urinate. He states he feel like he can mostly empty his bladder although sometimes feels like there is a little bit left over. He states this feeling is not atypical postsurgically for him they increasing bleeding is. Patient does have a little bit of suprapubic pain. He states he has been taking ibuprofen and Tylenol which seems to be adequate. He denies fevers or chills. No nausea or vomiting. He felt ?achy? yesterday but that resolved. Denies any back or flank pain. States he has been stooling with soft regular stools and taking a laxative. No black or bloody stools. Patient is not on any anticoagulants. He has had 5 prior TURP for small areas of prostate cancer, he has also had a UroLift in the past. Patient states he is on Flomax, statin, Tylenol and ibuprofen PRN. No known drug allergies. No tobacco alcohol or recreational drugs. Dr. Jurado at [facility] is his urologist. Related Data Home Medications Medication Instructions Recorded Confirmed Resmed Airsense 10 CPAP #1 ea 01/16/19 10/12/22 atorvastatin 10 mg tablet 10 mg PO BEDTIME 10/18/21 11/07/22 tamsulosin 0.4 mg capsule (Flomax) 0.4 mg PO BID 10/18/21 11/07/22 finasteride 5 mg tablet 5 mg PO DAILY 10/12/22 11/07/22 Previous Rx's Medication Instructions Recorded ciprofloxacin HCl 500 mg tablet 500 mg PO Q12H #20 tabs 10/03/23 Allergies Allergy/AdvReac Type Severity Reaction Status Date / Time No Known Allergies Allergy Uncoded 10/03/23 10:21 Review of Systems Review of Systems ROS Unobtainable: All systems reviewed & are unremarkable except as noted in HPI and below Patient History Medical History Hyperlipidemia Bladder cancer Psoriatic arthritis Excessive daytime sleepiness (~2013) Obstructive sleep apnea syndrome (~2013) Snoring (~2013) Primary insomnia (~2013) Surgical History Hx of cataract surgery History of bilateral knee arthroplasty H/O transurethral resection of bladder tumor (TURBT) Social History marital status: household members: spouse lives independently: Yes caregiver/support person: No housing: house education level: college occupational status: employed Smoking Status: Never smoker alcohol intake: current Smoking Status: Never smoker alcohol intake frequency: holidays/special occasions only Substance Use Type: does not use Exam Narrative Exam Narrative: GENERAL: Alert and oriented x three, male in mild distress HEENT: Head normocephalic, atraumatic, EOMI, pupils reactive, face symmetric, moist mucous membranes NECK: Supple, full range of motion CARDIOVASCULAR: Regular rate and rhythm without murmurs, rubs or gallops. RESPIRATORY: Breath sounds equal bilaterally, no wheezes rales or rhonchi. ABDOMEN: Soft, nontender. Non-distended. Normoactive bowel sounds all 4 quadrants. No guarding or rebound, rigidity, no mass : No CVA tenderness EXTREMITIES: Normal range of motion, no clubbing or edema. Neurovascularly intact NEUROLOGICAL: Cranial nerves II through XII grossly intact. Moving all extremities SKIN: Warm, dry, no petechiae, no rashes or lesions. Initial Vital Signs Initial Vital Signs: Vital Signs Blood Pressure 190/87 H 10/03/23 09:56 Pulse Oximetry 94 10/03/23 09:56 Course Orders Ordered: Discontinued Medications Acetaminophen (Acetaminophen 325 Mg Tablet) 975 mg PO Q8H PRN PRN Reason: Pain, Mild (1-3) Last Admin: 10/03/23 11:32 Dose: 975 mg Documented By: YUSEF Ciprofloxacin (Ciprofloxacin 250 Mg Tablet) 500 mg PO NOW ONE Stop: 10/03/23 11:54 Last Admin: 10/03/23 11:56 Dose: 500 mg Documented By: MPO Vital Signs Vital signs: Vital Signs - 8 hr 10/03/23 09:56 10/03/23 09:56 10/03/23 10:00 Temperature Pulse Rate 67 Respiratory Rate Blood Pressure 190/87 H Pulse Oximetry 94 96 Oxygen Delivery Method 10/03/23 10:01 10/03/23 11:25 10/03/23 11:26 Temperature 98 F Pulse Rate 69 63 63 Respiratory Rate 20 Blood Pressure 190/87 H Pulse Oximetry 98 96 96 Oxygen Delivery Method Room Air 10/03/23 11:26 10/03/23 11:30 10/03/23 11:30 Temperature Pulse Rate 62 Respiratory Rate Blood Pressure 153/79 H 129/76 Pulse Oximetry 95 Oxygen Delivery Method MDM - Male Genitourinary Lab Data 10/03/23 10:36 10/03/23 10:36 Labs: Lab Results 10/03/23 10/03/23 Range/Units 10:36 11:25 WBC 7.5 (4.5-11.0) X10^3/uL RBC 3.99 L (4.5-5.9) X10^6/uL Hgb 13.5 (13.5-17.5) g/dL Hct 39.4 L (41-53) % MCV 98.8 (80-100) fL MCH 33.7 (26-34) PG MCHC 34.1 (30-36) % RDW 13.1 (11.6-14.8) % Plt Count 204 (150-400) X10^3/uL Neut % (Auto) 70.8 (50-75) % Lymph % (Auto) 13.3 L (25-40) % Jennings % (Auto) 9.6 (3-14) % Eos % (Auto) 5.8 H (2-4) % Baso % (Auto) 0.5 (0-2) % Neut # (Auto) 5300 (1913-4974) /uL Lymph # (Auto) 1000 L (4461-3362) /uL Jennings # (Auto) 700 (0-900) /uL Eos # (Auto) 400 (0-450) /uL Baso # (Auto) 0 (0-100) /uL Sodium 136 L (137-145) mmol/L Potassium 4.2 (3.4-5.1) mmol/L Chloride 102 (98-107) mmol/L Carbon Dioxide 26 (22-32) mmol/L BUN 21 H (9-20) mg/dL Creatinine 0.90 (0.66-1.25) mg/dL Estimated GFR > 60 (>60) mL/min BUN/Creatinine Ratio 23.3 H (6-22) Glucose 95 (80-110) mg/dL Calcium 9.7 (8.4-10.2) mg/dL Total Bilirubin 0.9 (0.2-1.3) mg/dL AST 22 (17-59) IU/L ALT 25 (<50) IU/L Alkaline Phosphatase 76 (38-126) U/L Total Protein 7.0 (6.3-8.2) g/dL Albumin 4.1 (3.5-5.0) g/dL Globulin 2.9 (1.7-4.1) g/dL Albumin/Globulin Ratio 1.4 (1.0-2.8) Lipase 35 (23-300) U/L Urine Color Red Urine Appearance Turbid Urine pH 6.5 (4.5-8.0) Ur Specific [place] 1.020 (1.000-1.035) Urine Protein 3+ H (Negative) Urine Glucose (UA) Trace H (Negative) g/dL Urine Ketones Trace H (NEGATIVE) Urine Occult Blood 3+ H (Negative) Urine Nitrate Positive H (Negative) Urine Bilirubin Negative (NEGATIVE) Urine Urobilinogen 2.0 H (0.2) E.U./dL Ur Leukocyte Esterase 1+ H (NEGATIVE) Urine RBC >100/hpf H (0-5/HPF) Urine WBC 5-10/hpf H (0-5/HPF) Ur Squamous Epith Cells 1-5 /hpf (0-5/HPF) Urine Bacteria Moderate (10-30) H (None) Ur Culture Indicated? Specimen cultured Vol Urine Centrifuged 10ml (spun) Imaging Data CT scan - abdomen/pelvis: Radiologist's Impression: Close Abdomen/Pelvis CT (Signed) Emily Sal - 10/03/23 Echocardiogram Ultrasound (Signed) Will Gross - 03/22/[address] (Addendum) Froilan Carpio - 01/08/23 Telemetry Strips 10/18/[address] (Signed) Richa Lemus - 10/07/20 Shoulder MRI (Signed) Anni Song - 02/25/19 Shoulder X-Ray (Signed) Vignesh Sharp - 02/18/19 [place] [address] CT Scan Report Signed Patient: Yemi Harding Jr MR#: [id number] : 1955 Acct:[id number] Age/Sex: 68 / M Date of Service: 10/03/23 Loc: ED Accession Number: [id number] Procedure: CT kidney ureter bladder (KUB) Ordering Provider: Kiesha Tripathi D.O. PROCEDURE: CT KIDNEY URETER BLADDER (KUB) INDICATIONS: recent TURP last w, increased bleeding, mild pain suprapubic TECHNIQUE: Axial sections were acquired from the lung bases to the pubic symphysis. Coronal and sagittal reformats were performed. For radiation dose reduction, the following was used: automated exposure control, adjustment of mA and/or kV according to patient size. COMPARISON: Outside Facility, RG, CT THORAX/ ABD/ PELVIS WITH CONTRAST, 07/20/2022, 11:56. FINDINGS: Image quality: Diagnostic. Lower Chest: Calcification of the coronary vasculature. URINARY: Right Kidney: Small nonobstructing calculi within the right interpolar and inferior pole kidney are present. No hydronephrosis. Right Ureter: No hydroureter. Left Kidney: No stones or hydronephrosis. Left Ureter: No hydroureter. Bladder: Ill-defined 60 mm diameter high density focus within the posterior knee bladder. Focal outpouching of the anterosuperior urinary bladder measuring roughly 20 mm, with mild surrounding fat stranding, as before left posterior urinary bladder diverticulum is unchanged.. ABDOMEN: Liver: No contour-deforming solid mass. Gallbladder: No radiopaque gallstones or wall thickening. Biliary ducts: No biliary dilation. Pancreas: No ductal dilation. Spleen: Size is within normal limits. Adrenal Glands: No adrenal nodules. Stomach and Bowel: Normal colonic caliber, without significant wall thickening. Appendix not seen. No evidence of appendicitis. Peritoneum: No abnormal intraperitoneal fluid. No free air. Ventral Wall: No hernia. Abdominal Nodes: No enlarged retroperitoneal or mesenteric lymph nodes. Vessels: Aorta and inferior vena cava are normal in size. PELVIS: Pelvic Organs: Small metallic foci within the prostate. Pelvic Nodes: Unremarkable. Miscellaneous: No inguinal hernias are seen. Bones: Unremarkable. IMPRESSION: 1. Urinary bladder clot. 2. Nonobstructing right renal calculi. 3. Urinary bladder diverticula. 4. Coronary artery disease. Dictated by: Emily Sal M.D. on 10/03/2023 at 11:26 Approved by: Eimly Sal M.D. on 10/03/2023 at 11:32 MDM Narrative Medical decision making narrative: Patient had 237 on prevoid bladder scan. Patient is reluctant to have urinary catheter and has been urinating so will hold off while obtaining workup. Labs labs show white count of 7.5 hemoglobin of 13.5 consistent with priors accept for 2020. Patient platelets are 204. Renal functions normal with creatinine 0.9 BUN 21 sodium of [address] KUB shows urinary bladder clots 6 D mm, focal outpouching anterior superior urinary bladder measuring 20 mm with mild surrounding fat stranding as before left posterior urinary bladder diverticulum unchanged. Nonobstructing right renal calculi. Coronary artery disease. UA patient has nitrate positive urine 3+ blood, trace glucose, 1+ leukocyte esterase, greater than 100 RBCs, 5-10 WBCs 1-5 squamous with moderate bacteria. Spoke with on-call Urology, Dr. Sheets. Plan to continue with oral antibiotics. Patient is draining his bladder while here in the department we will hold off on any bladder irrigation patient is quite reluctant for irrigation. We will have patient discharged home but call his Urology team to see if they would like to see him today or tomorrow for recheck. Discharge Plan Departure Patient Disposition: Home Clinical Impression: Hematuria, Acute UTI Activity Restrictions/Additional Instructions: Please follow-up with your urology team. Call them today to see if they would like to see you in the office. I did speak with local Urology. Take oral antibiotics until completed. You do have a nitrate positive UTI on your urinalysis Prescription sent to [facility] in [place]. I have included your labs and CT imaging. Please return for fevers, new or worsening abdominal pain, inability to empty your bladder, increasing bleeding or bright red blood, black or bloody stools, lightheadedness or passing out or other new or concerning changes Prescriptions: New ciprofloxacin HCl 500 mg tablet 500 mg PO Q12H Qty: 20 0RF No Action finasteride 5 mg tablet 5 mg PO DAILY atorvastatin 10 mg Tablet 10 mg PO BEDTIME tamsulosin [Flomax] 0.4 MG capsule 0.4 mg PO BID (DME) Resmed Airsense 10 CPAP Qty: 1 Dose Instruction: As directed Patient Comments: Pressure: 5-11 cmH2O DME: [facility] Rx Instructions: As directed Referrals: Mayo Crandall MD [Primary Care Provider] - Stand Alone Forms: Patient Portal/API
--- NOTE | 2023-10-03 10:29 | DI.CT.S_ITS ---
PROCEDURE: CT KIDNEY URETER BLADDER (KUB) INDICATIONS: recent TURP last w, increased bleeding, mild pain suprapubic TECHNIQUE: Axial sections were acquired from the lung bases to the pubic symphysis. Coronal and sagittal reformats were performed. For radiation dose reduction, the following was used: automated exposure control, adjustment of mA and/or kV according to patient size. COMPARISON: Outside Facility, RG, CT THORAX/ ABD/ PELVIS WITH CONTRAST, 07/20/2022, 11:56. FINDINGS: Image quality: Diagnostic. Lower Chest: Calcification of the coronary vasculature. URINARY: Right Kidney: Small nonobstructing calculi within the right interpolar and inferior pole kidney are present. No hydronephrosis. Right Ureter: No hydroureter. Left Kidney: No stones or hydronephrosis. Left Ureter: No hydroureter. Bladder: Ill-defined 60 mm diameter high density focus within the posterior knee bladder. Focal outpouching of the anterosuperior urinary bladder measuring roughly 20 mm, with mild surrounding fat stranding, as before left posterior urinary bladder diverticulum is unchanged.. ABDOMEN: Liver: No contour-deforming solid mass. Gallbladder: No radiopaque gallstones or wall thickening. Biliary ducts: No biliary dilation. Pancreas: No ductal dilation. Spleen: Size is within normal limits. Adrenal Glands: No adrenal nodules. Stomach and Bowel: Normal colonic caliber, without significant wall thickening. Appendix not seen. No evidence of appendicitis. Peritoneum: No abnormal intraperitoneal fluid. No free air. Ventral Wall: No hernia. Abdominal Nodes: No enlarged retroperitoneal or mesenteric lymph nodes. Vessels: Aorta and inferior vena cava are normal in size. PELVIS: Pelvic Organs: Small metallic foci within the prostate. Pelvic Nodes: Unremarkable. Miscellaneous: No inguinal hernias are seen. Bones: Unremarkable. IMPRESSION: 1. Urinary bladder clot. 2. Nonobstructing right renal calculi. 3. Urinary bladder diverticula. 4. Coronary artery disease. Dictated by: Emily Sal M.D. on 10/03/2023 at 11:26 Approved by: Emily Sal M.D. on 10/03/2023 at 11:32
[2023-10-03 10:44] LABS: Add Manual Diff / Slide Review NO; Basophils Absolute Auto 0 /uL (0-100); Basophils Percent Auto 0.5 % (0-2); Eosinophils Absolute Auto 400 /uL (0-450); Eosinophils Percent Auto 5.8 % (2-4); Hematocrit 39.4 % (41-53); Hemoglobin 13.5 g/dL (13.5-17.5); Lymphocytes Absolute Auto 1000 /uL (1100-4500); Lymphocytes Percent Auto 13.3 % (25-40); Mean Corpuscular HGB Conc 34.1 % (30-36); Mean Corpuscular Hemoglobin 33.7 PG (26-34); Mean Corpuscular Volume 98.8 fL (80-100); Monocytes Absolute Auto 700 /uL (0-900); Monocytes Percent Auto 9.6 % (3-14); Neutrophils Absolute Auto 5300 /uL (1500-7000); Neutrophils Percent Auto 70.8 % (50-75); Platelet Count 204 X10^3/uL (150-400); Red Blood Cell Count 3.99 X10^6/uL (4.5-5.9); Red Cell Distribution Width 13.1 % (11.6-14.8); White Blood Cell Count 7.5 X10^3/uL (4.5-11.0)
[2023-10-03 10:57] LABS: Alanine Aminotransferase 25 IU/L (<50); Albumin 4.1 g/dL (3.5-5.0); Albumin Globulin Ratio 1.4 (1.0-2.8); Alkaline Phosphatase 76 U/L (38-126); Aspartate Aminotransferase 22 IU/L (17-59); BUN Creatinine Ratio 23.3 (6-22); Bilirubin Total 0.9 mg/dL (0.2-1.3); Blood Urea Nitrogen 21 mg/dL (9-20); Calcium 9.7 mg/dL (8.4-10.2); Carbon Dioxide 26 mmol/L (22-32); Chloride 102 mmol/L (98-107); Estimated Glomerular Filt Rate > 60 mL/min (>60); Globulin 2.9 g/dL (1.7-4.1); Glucose 95 mg/dL (80-110); HEMOLYSIS < 15 (0-50); Lipase 35 U/L (23-300); Potassium 4.2 mmol/L (3.4-5.1); Sodium 136 mmol/L (137-145)
[2023-10-03] MEDS: ACETAMINOPHEN 325 MG TABLET 975 MG PO (11:32)
[2023-10-03 11:42] LABS: Appearance Urine UA TURBID; Bilirubin Urine UA NEGATIVE (NEGATIVE); Color Urine UA RED; Glucose Urine UA TRACE g/dL (Negative); Ketones Urine UA TRACE (NEGATIVE); Leukocyte Esterase Urine UA 1+ (NEGATIVE); Nitrite Urine UA POSITIVE (Negative); Occult Blood Urine UA 3+ (Negative); Protein Urine UA 3+ (Negative); pH Urine UA 6.5 (4.5-8.0)
[2023-10-03 11:45] LABS: Bacteria Urine Moderate (10-30); Culture Indicated Urine Specimen Cultured; RBC Urine >100/HPF (0-5/HPF); Squamous Epithelial Cell Urine 1-5 /HPF (0-5/HPF); Urine Volume 10mL (spun); WBC Urine 5-10/HPF (0-5/HPF)
[2023-10-03] MEDS: CIPROFLOXACIN 250 MG TABLET 500 MG PO (11:56)
== END 2023-10-03 13:12 | disposition home or self-care (01) ==
PROVIDERS: Emergency Provider Emergency Medicine; PCP Family Medicine
DX: R31.9 Hematuria, unspecified (principal); N39.0 Urinary tract infection, site not specified
CPT/HCPCS: 36415; 51798; 74176; 80053; 81001; 83690; 85025; 87086; 99284

== ENCOUNTER → 2023-10-04 10:23 | Outpatient (CLI) | payer MEDICARE, OTHER, SELFPAY | PROVIDERS: PCP Family Medicine; Referring Provider Urology; Visit Provider Urology | DX: C67.9 Malignant neoplasm of bladder, unspecified (principal); I82.890 Acute embolism and thrombosis of other specified veins; N20.0 Calculus of kidney ==

== ENCOUNTER → 2023-10-04 10:27 | Outpatient (CLI) | payer MEDICARE, OTHER, SELFPAY ==
--- NOTE | 2023-10-04 | DI.US.S_ITS ---
PROCEDURE: US RENAL COMPLETE INDICATIONS: MAL KEL OF BLADDER TECHNIQUE: Real-time scanning was performed of the kidneys and bladder, with image documentation. COMPARISON: [facility], CT, CT KIDNEY URETER BLADDER (KUB), 10/03/2023, 10:49. FINDINGS: Kidneys: Kidneys are normal in size. Right kidney measures 11.9 cm long; left kidney measures 11.3 cm long. Right renal cortical thickness is 1.0 cm; left renal cortical thickness is 1.2 cm. Renal cortical echotexture is normal. No hydronephrosis. A nonobstructing calculus is present in the inferior right kidney. Bladder: Pre-void bladder volume is 143 mL. Post-void residual is 120 mL. Pre-void images demonstrate no intraluminal masses or stones. On pre-void images, bilateral ureteral jets are noted with color Doppler interrogation. (Of note, ureteral jets may not be detectable in up to 25% of cases due to insufficient differences in specific gravity between ureteral and bladder urine). Clot is redemonstrated at the base of the bladder similar to the CT dated October 03, 2023. A bladder diverticulum is noted. Miscellaneous: No free pelvic fluid. IMPRESSION: 1. Large postvoid residual. 2. Nonobstructive right nephrolithiasis. 3. Thrombus within the inferior bladder. Dictated by: Damaris Mendez M.D. on 10/04/2023 at 12:34 Approved by: Damaris Mendez M.D. on 10/04/2023 at 12:41
[2023-10-04 11:48] LABS: Appearance Urine UA TURBID; Bacteria Urine Few (2-10); Color Urine UA RED; RBC Urine >100/HPF (0-5/HPF); Squamous Epithelial Cell Urine 1-5 /HPF (0-5/HPF); Urine Volume 10mL (spun); WBC Urine 1-5/HPF (0-5/HPF)
[2023-10-04 11:49] LABS: Culture Indicated Urine Cult Not Indicated
== END ==
PROVIDERS: PCP Family Medicine; Referring Provider Urology; Visit Provider Urology
DX: C67.9 Malignant neoplasm of bladder, unspecified (principal); I82.890 Acute embolism and thrombosis of other specified veins; N20.0 Calculus of kidney; R30.0 Dysuria
CPT/HCPCS: 76770; 81001

== ENCOUNTER → 2024-01-09 08:17 | Outpatient (CLI) | payer MEDICARE, OTHER, SELFPAY ==
[2024-01-09 09:02] LABS: Cholesterol 95 mg/dL (140-199); HDL Cholesterol 48 mg/dL (40-60); LDL Cholesterol Calculated 33 mg/dL (<100); Triglycerides 68 mg/dL (35-150)
== END ==
PROVIDERS: PCP Family Medicine; Referring Provider Internal Medicine Cardiovascular Disease; Visit Provider Internal Medicine Cardiovascular Disease
DX: E78.5 Hyperlipidemia, unspecified (principal)
CPT/HCPCS: 36415; 80061

== ENCOUNTER → 2024-08-06 08:43 | Outpatient (CLI) | payer MEDICARE, OTHER, SELFPAY ==
--- NOTE | 2024-08-06 08:45 | DI.CT.S_ITS ---
PROCEDURE: CT IVP A/P W/WO INDICATIONS: Malignant neoplasm of bladder, unspecified TECHNIQUE: Optional 5 mm thick noncontrast images acquired from the diaphragm to the symphysis pubis. After the administration of intravenous contrast, 5 mm thick images acquired from the diaphragm to the symphysis pubis after a 10-minute delay. 2 mm thick coronal and sagittal reformats were then performed of the kidneys and ureters. For radiation dose reduction, the following was used: automated exposure control, adjustment of mA and/or kV according to patient size. COMPARISON: Outside Facility, , CT THORAX/ ABD/ PELVIS WITH CONTRAST, 07/20/2022, 11:56. [facility], CT, CT KIDNEY URETER BLADDER (KUB), 10/03/2023, 10:49. FINDINGS: Image quality: Diagnostic. Kidneys and Ureters: Both kidneys are normal in size, without hydronephrosis or nephrolithiasis. No perinephric fat stranding. There is normal bilateral renal enhancement. Renal calyces appear normal in morphology when filled with contrast. Opacified portions of both ureters demonstrate normal caliber Bladder: Bladder wall demonstrates irregular thickening. Bladder is also incompletely distended. There is particular irregularity along the posterior inferior aspect. Previous luminal mass identified on 10/03/2023 is not visualized. Bladder diverticular present. OTHER: Lower chest: Unremarkable. Liver: Subcentimeter low-attenuation foci are present unchanged. Gallbladder: No radiopaque gallstones or wall thickening. Biliary ducts: No biliary dilation. Pancreas: No ductal dilation. Spleen: Size is within normal limits. Adrenal Glands: No adrenal nodules. Stomach and Bowel: Normal colonic caliber, without significant wall thickening. Peritoneum: No abnormal intraperitoneal fluid. No free air. Ventral Wall: No hernia. Abdominal Nodes: No retroperitoneal or mesenteric adenopathy by size criteria. Vessels: Aorta and inferior vena cava are normal in size. PELVIS: Pelvic Organs: Unremarkable. Pelvic Nodes: No enlarged lymph nodes. Miscellaneous: No inguinal hernias are seen. Bones: No aggressive osseous abnormality. IMPRESSION: Irregular thickened appearance of the bladder wall. This limits evaluation and is incompletely distended. There is irregularity along the posterior inferior aspect at the site of previous lesion. However, it is unclear from current exam if this is related to residual lesion or diffuse bladder wall irregularity. No evidence of metastatic disease Dictated by: Ольга Castaneda M.D. on 08/07/2024 at 7:57 Approved by: Ольга Castaneda M.D. on 08/07/2024 at 8:02
[2024-08-06 09:15] LABS: Estimated Glomerular Filt Rate > 60 mL/min (>60)
== END ==
PROVIDERS: Radiology Diagnostic Radiology; PCP Family Medicine; Referring Provider Urology; Visit Provider Urology
DX: C67.9 Malignant neoplasm of bladder, unspecified (principal); R35.0 Frequency of micturition; N21.0 Calculus in bladder; M19.90 Unspecified osteoarthritis, unspecified site
CPT/HCPCS: 36415; 74178; 82565; Q9967

== ENCOUNTER → 2025-01-28 11:41 | Outpatient (ROUT) | payer MEDICARE, OTHER, SELFPAY ==
[2025-01-28 12:42] LABS: COVID-19 CEPHEID 4-PLEX PCR Negative (Negative); Influenza A - CEPHEID Flu A NEGATIVE (NEGATIVE); Influenza B - CEPHEID Flu B NEGATIVE (NEGATIVE); Respiratory Syncytial Virus Negative (Negative)
== END ==
PROVIDERS: PCP Family Medicine; Visit Provider Family Medicine
DX: R05.1 Acute cough (principal)
CPT/HCPCS: 0241U

== ENCOUNTER → 2025-05-12 08:03 | Outpatient (CLI) | payer MEDICARE, OTHER, SELFPAY ==
[2025-05-12 08:19] LABS: Appearance Urine UA CLOUDY; Bilirubin Urine UA NEGATIVE (NEGATIVE); Color Urine UA YELLOW; Glucose Urine UA NEGATIVE (Negative); Ketones Urine UA TRACE (NEGATIVE); Leukocyte Esterase Urine UA 3+ (NEGATIVE); Nitrite Urine UA POSITIVE (Negative); Occult Blood Urine UA 1+ (Negative); Protein Urine UA TRACE (Negative); Specific Gravity Urine UA 1.020 (1.000-1.035); Urobilinogen Urine UA 1.0 E.U./dL (0.2); pH Urine UA 6.0 (4.5-8.0)
[2025-05-12 08:24] LABS: Culture Indicated Urine Specimen Cultured
== END ==
PROVIDERS: PCP Family Medicine; Referring Provider Urology; Visit Provider Urology
DX: R30.0 Dysuria (principal)
CPT/HCPCS: 81001; 87077; 87086; 87186